=== PATIENT | female | born 1990 | race American Indian/Alaskan Native ===

== ENCOUNTER 2018-08-17 05:00 | Inpatient (IN) | payer BC ==
[2018-08-17 06:01] VITALS: BMI 32.3
[2018-08-17 06:26] LABS: BASO % 0.6 % (0.0-2.0); EOS % 0.8 % (0.0-4.0); HEMOGLOBIN 9.4 g/dL (11.0-16.0); LYMPH # 1.6 K/uL (1.0-4.3); LYMPH % 30.1 % (20.0-40.0); MEAN CELL VOLUME 86.1 fL (81.0-99.0); MEAN CORPUSCULAR HEMOGLOBIN 27.8 pg (27.0-31.0); MEAN CORPUSCULAR HGB CONC 32.3 g/dL (33.0-37.0); MEAN PLATELET VOLUME 11.5 fL (7.2-11.7); MONO # 0.6 K/uL (0.0-0.8); MONO % 11.4 % (0.0-10.0); NEUT # 3.1 K/uL (1.8-7.0); NEUT % 57.1 % (50.0-75.0); NRBC % 0.1 % (0.0-2.0); RBC 3.37 Mil/uL (3.80-5.20); RED CELL DISTRIBUTION WIDTH 15.3 % (11.5-14.5); WHITE BLOOD COUNT 5.4 K/uL (4.8-10.8)
[2018-08-17] MEDS ORDERED: cefOXitin IV 2 gm in Dextrose 2 GM/50 ML BAG IVPB ONE (06:39)
[2018-08-17] MEDS ORDERED: Lactated Ringer's 1,000 ML IV ONE (06:39)
[2018-08-17 06:43] LABS: ALBUMIN 3.4 g/dL (3.5-5.0); ALT/SGPT 23 U/L (9-52); AST/SGOT 19 U/L (14-36); BLOOD UREA NITROGEN 9 mg/dL (7-17); CALCIUM 9.3 mg/dl (8.6-10.4); GFR NON-AFRICAN AMERICAN > 60
[2018-08-17 06:44] LABS: SQUAMOUS EPITHIAL < 1 /hpf (0-5); URINE BILIRUBIN NEGATIVE (NEGATIVE); URINE BLOOD NEGATIVE (NEGATIVE); URINE CLARITY Clear (Clear); URINE COLOR Yellow (YELLOW); URINE GLUCOSE (UA) NORMAL (Normal); URINE LEUKOCYTE ESTERASE NEG Leu/uL (Negative); URINE PROTEIN NEGATIVE (NEGATIVE); URINE UROBILINOGEN NORMAL mg/dL (0.2-1.0)
--- NOTE | 2018-08-17 06:52 | OBHP ---
Datetime: 08/17/2018 06:45 IP Adm Impression: Term, intrauterine IP Admit Plan: Admit to unit; Initiate Section protocol Admit Comment, IP Provider: 27 yo female G2 with an IUP at 37.1 weeks Hx of previous C/S Admitted for repeat C/S, per Dr. Don PMx Neg PSHx Myomectomy and C/S NKDA Social Hx Denies x 3 FHT's reactive Admitted for repeat C/S Pelvic Type - PN: Adequate Extremities - PN: Normal Abdomen - PN: Normal Back - PN: Normal Breast - PN: Not Done Lungs - PN: Normal Heart - PN: Normal Thyroid - PN: Normal Neurologic - PN: Normal HEENT - PN: Normal General - PN: Normal Membranes, Provider: Intact Gestation - Est Wks by US: 37.1 EGA AdmitDate IP: 37.1 Vital Signs Provider: Reviewed IP Chief Complaint: Scheduled Section Dilatation, Provider: RAMYA Genitourinary Exam: Normal DTRs - PN: Normal
[2018-08-17] MEDS ORDERED: cefOXitin IV 2 gm in Saline 2 GM/50 ML BAG IVPB ONE (07:05)
[2018-08-17] MEDS ORDERED: Sodium Citrate/Citric Acid 15 ml Sol ONE (07:05)
[2018-08-17] MEDS ORDERED: Oxytocin 20 units in LR 2,000 ML IV ONE (07:07)
[2018-08-17] MEDS ORDERED: Oxytocin 10 Units/ml Inj ONE (07:09)
[2018-08-17] MEDS ORDERED: Sodium Citrate/Citric Acid 15 ml Sol PO ONE (07:20)
[2018-08-17] MEDS ORDERED: Morphine 1 mg/ml preservative-free Inj(Duramorph) ONE (07:26)
[2018-08-17] MEDS ORDERED: DiphenhydrAMINE 50 mg/ml Inj IVP PRN (09:01)
[2018-08-17] MEDS: Prenatal Multivit/Folic Acid/Iron Tab PO SCH (10:59)
[2018-08-17] MEDS: cefOXitin IV 2 gm in Dextrose 2 GM/50 ML BAG IVPB SCH ×2 (14:17→23:00)
--- NOTE | 2018-08-17 18:18 | HP ---
HISTORY OF PRESENT ILLNESS: The patient is a 27-year-old female with 2, para 1 with history of previous a section and a previous open myomectomy, who is coming in for a repeat section. The patient is 37 weeks by date. Due date is 09/06/2018. The patient's course has been essentially unremarkable. Medical history is unremarkable. SOCIAL HISTORY: She does not smoke or drink. ALLERGIES: NONE. CURRENT MEDICATIONS: one tablet daily. Currently, she is not taking any calcium or other medication. PAST SURGICAL HISTORY: Significant for an open myomectomy and a previous section because of the open myomectomy. MEDICAL HISTORY: Unremarkable. PHYSICAL EXAMINATION: VITAL SIGNS: Blood pressure is 110/70, pulse is 72, respiratory rate is 20, temperature is 98.8. HEAD, EAR, NOSE AND THROAT: Within normal. CHEST: Clear. CARDIAC: Reveals normal heart sounds without any murmurs. LUNGS: Clear. BREASTS: Report no masses. ABDOMEN: Symphysis to fundal height is 38 cm. Longitudinal lie. Vertex, heart tones are normal. PELVIC: She has a normal vulva. Bartholin, urethral, and [place]'s glands are within normal. Cervix is long, closed and posterior. Heart tracing is category 1. ADMITTING DIAGNOSES: Intrauterine at 37 weeks, previous myomectomy x1, previous section x1. Managed to perform a lower segment section. Prior to being scheduled for the surgical procedure, the patient underwent an informed consent, discussion and education session with me in the hospital lasting approximately 45 minutes, during which time I explained with understandable terms the following, the nature and extent of the disease process and the nature and extent of the contemplated operation. I also explained to her the risks and potential complications of the operative procedure to include but not limited to infection, hemorrhage, deep vein thrombosis, atelectasis, pneumonia, pulmonary embolism, damage to bladder, damage to ureter, renal insufficiency, renal failure, wound infection, wound dehiscence, incisional hernia, keloid formation, damage to large and small intestine, damage to inferior vena cava and the aorta requiring extensive repair, anesthesia complications, electrolyte imbalance, possibility of , fluid overload, cerebral edema, embolism and other complications that were discussed but are not listed above. Also discussed with the patient the anticipated benefits and results of the surgery including a conservative estimate of the successful outcome. I discussed with the patient what the operation would not accomplish. I informed the patient the possibility of unanticipated pathology requiring a more extensive procedure. All the questions were from the patient were encouraged, welcomed, and answered to her satisfaction. The patient was given the opportunity to store her own blood for use and autologous blood transfusion and she had declined. Ron Yusuf MD
[2018-08-18] MEDS: cefOXitin IV 2 gm in Dextrose 2 GM/50 ML BAG IVPB SCH (06:16)
[2018-08-18] MEDS: Enoxaparin 40 mg Syringe SC SCH (06:22)
[2018-08-18 08:07] LABS: HEMOGLOBIN 9.6 g/dL (11.0-16.0); MEAN CELL VOLUME 85.4 fL (81.0-99.0); MEAN CORPUSCULAR HEMOGLOBIN 27.8 pg (27.0-31.0); MEAN CORPUSCULAR HGB CONC 32.5 g/dL (33.0-37.0); MEAN PLATELET VOLUME 11.9 fL (7.2-11.7); RBC 3.46 Mil/uL (3.80-5.20); RED CELL DISTRIBUTION WIDTH 15.6 % (11.5-14.5); WHITE BLOOD COUNT 6.7 K/uL (4.8-10.8)
[2018-08-18] MEDS ORDERED: Bisacodyl 5mg EC Tab PO ONE (10:00)
[2018-08-18] MEDS: Prenatal Multivit/Folic Acid/Iron Tab PO SCH (10:14)
[2018-08-18] MEDS: Simethicone 80 mg Chewtab PO SCH ×4 (10:15→21:36)
[2018-08-18] MEDS: Oxycodone/Acetaminophen 5/325 mg Tab PO PRN (10:16)
--- NOTE | 2018-08-18 12:24 | OBPPN ---
Datetime: 08/18/2018 07:50 PP Pain Prov: Within normal limits PP Nausea Prov: Denies PP Flatus Prov: No PP BM Prov: No PP Breasts Prov: Normal PP Heart Prov: Normal PP Lungs Prov: Normal PP Abdomen/Uterus Prov: Normal PP Lochia Prov: Normal PP CVA Tenderness Prov: Normal PP Extremities Prov: Normal PP C/S Incision Prov: Normal PP Comments Phys Exam Prov: (+) bowel sounds, fundus firm and mobile. minimal kyle-incisional tender ness. incision clean/dry/intact. abdominal binder present. PP Impression Prov: Normal progression PP Plan Prov: Continue present management PP Progress Note Prov: Patient seen and examined. Patient denies n/v/flatus/BM. Plan: Patient to try diet today Catheter removed, will monitor for urine output Patient encouraged to ambulate Pain control IP PP Procedures: None Vital Signs Provider PP: Reviewed; Within Normal Limits
--- NOTE | 2018-08-18 13:19 | PN ---
DATE: 08/18/2018 SUBJECTIVE: The patient has no complaints. OBJECTIVE: VITAL SIGNS: Stable. She is afebrile. ABDOMEN: Soft. Incision is clean and intact. BREASTS: Reveal no engorgement. EXTREMITIES: Nontender with normal reflexes with no evidences of DVT. CHEST: Clear. CARDIAC: Reveals normal heart sounds without any murmurs. ASSESSMENT AND PLAN: The patient is status post section, stable. Plan is to ambulate the patient and advance diet as tolerated. Ron Yusuf MD
[2018-08-18] MEDS: Magnesium Hydroxide Susp 30 ml UD PO ONE ×2 (21:36→21:38)
[2018-08-19] MEDS: Oxycodone/Acetaminophen 5/325 mg Tab PO PRN ×3 (00:50→15:37)
[2018-08-19] MEDS: Enoxaparin 40 mg Syringe SC SCH (09:04)
[2018-08-19] MEDS: Simethicone 80 mg Chewtab PO SCH ×3 (09:04→22:09)
[2018-08-19] MEDS: Prenatal Multivit/Folic Acid/Iron Tab PO SCH (09:04)
[2018-08-19 16:10] VITALS: RESP 18
--- NOTE | 2018-08-20 01:49 | PN ---
DATE: 08/19/2018 SUBJECTIVE: The patient has no complaints. OBJECTIVE: VITAL SIGNS: Stable. ABDOMEN: Soft. Incision is clean and intact. EXTREMITIES: Nontender. Homans' sign is negative. No evidence of DVT. CHEST: Clear. CARDIAC: Exam reveals normal heart sounds without any murmurs. LUNGS: Clear. ASSESSMENT: The patient is status post section day 2. PLAN: To continue ambulating the patient, anticipate discharge tomorrow morning on Keflex 500 mg four times a day x7 and Tylenol No 3 two tablets every 4 hours p.r.n. for a total of 20 tablets. She will be followed up in the office in 1 week. Ron Yusuf MD
[2018-08-20] MEDS: Enoxaparin 40 mg Syringe SC SCH (07:43)
[2018-08-20 09:34] VITALS: BP 107/67; PULSE 87; TEMP 97.8; O2SAT 97
[2018-08-20] MEDS: Simethicone 80 mg Chewtab PO SCH (10:17)
[2018-08-20] MEDS ORDERED: Influenza Vaccine 60 MCG/0.5 ML SYR (3 yr & up) IM ONE (11:38)
--- NOTE | 2018-08-20 19:17 | PN ---
DATE: 08/20/2018 SUBJECTIVE: The patient has no complaints. She had a bowel movement. OBJECTIVE: VITAL SIGNS: Stable. She is afebrile. ABDOMEN: Soft. Incision is clean and intact. EXTREMITIES: Nontender. NEUROLOGIC: She is alert and oriented x3 with normal reflexes. ASSESSMENT: The patient is status post section day #3. PLAN: Plan is to discharge the patient on Keflex 500 mg 4 times a day x7 days and Tylenol No.3 two tablets every 4 hours p.r.n. for total of 40 tablets, to be followed up in the office in one week. Ron Yusuf MD
--- NOTE | 2018-08-21 02:55 | DS ---
The patient is a 27-year-old female who was admitted at 37 weeks 8 days, previous section x1, previous myomectomy x1, for repeat section. The patient underwent a lower segment section, delivered a live male infant, Apgars of 9 at one minute and 9 at five minutes, with normal tubes and ovaries. Postoperatively, the patient remained afebrile. She was discharged home on postoperative day number 3 on Keflex 500 mg four times a day x7 days and Tylenol No. 3 two tablets every 4 hourly p.r.n. for a total of 20 tablets, to be followed up in the office in one week. Ron Yusuf MD
--- NOTE | 2018-08-23 13:50 | OBDS ---
DELIVERY PERSONNEL Delivery Doctor: Gerson Yusuf MD Scrub Nurse: Eliane Mcnally Motor Coach Tour Operator: Jazzy Rivera RN Anesthesiologist: Dr. Keenan Resident: Priti Conte medical student MATERNAL INFORMATION Delivery Anesthesia: Spinal Medications in Delivery: flow seal Estimated Blood Loss (ml): 250 Placenta Cultured: Yes Maternal Complications: None LABOR SUMMARY [facility]: 09/06/2018 00:00 No. Babies in Womb: 1 Attempted: No LABOR INFORMATION Reason for Induction: Not Applicable Oxytocin: N/A Group B Beta Strep: Done, Result Unknown Antibiotics # of Doses: 1 Antibiotics Time of Last Dose: 717 Steroids Given: None Reason Steroids Not Administered: Not Applicable MEMBRANES Membranes Rupture Method: Artificial Rupture of Membranes: 08/17/2018 08:02 Length of Rupture (hrs): 0.02 Amniotic Fluid Color: Clear Amniotic Fluid Amount: Moderate Amniotic Fluid Odor: Normal STAGES OF LABOR Stage 3 hrs: 0 Stage 3 min: 1 CSECTION DELIVERY Primary Indication: Repeat Elective Secondary Indication: Other Other Secondary Indication: previous myomectomy CSection Urgency: Elective CSection Incidence: Repeat Labor: N/A CSection Incision: Lower Uterine Transverse BABY A INFORMATION Delivery Date/Time: 08/17/2018 08:03 Method of Delivery: Born in Route : No : N/A Forceps: N/A Vacuum Extraction: N/A Shoulder Dystocia : No SHOULDER DYSTOCIA BABY A Infant Delivery Date/Time: 08/17/2018 08:03 PRESENTATION/POSITION BABY A Presentation: Breech Cephalic Presentation: N/A Breech Presentation: Timi PLACENTA INFORMATION BABY A Placenta Delivery Time : 08/17/2018 08:04 Placenta Method of Delivery: Manual Removal Placenta Status: Delivered SCORES BABY A Heart Rate 1 min: >100 bpm Resp Effort 1 min: Good Cry Reflex Irritability 1 min: Cough or Sneeze or Pulls Away Muscle Tone 1 min: Active Motion Color 1 min: Body [place], Extremities Blue Resuscitation Effort 1 min: Tactile Stimulation SCORE 1 MIN: 9 Heart Rate 5 min: >100 bpm Resp Effort 5 min: Good [place] Reflex Irritability 5 min: Cough or Sneeze or Pulls Away Muscle Tone 5 min: Active Motion Color 5 min: Body [place], Extremities Blue Resuscitation Effort 5 min: N/A SCORE 5 MIN: 9 INFORMATION BABY A Gestational Age at Delivery: 37.1 Gestational Status: Term Outcome : Liveborn Condition : Stable Infant Sex: Male IDENTIFICATION/MEDS BABY A ID Band Number: [id number] ID Band Location: Left Leg; Left Arm Sensor Applied: Yes Sensor Number: [id number] Sensor Location : Cord Clamp Vitamin K Given : Aquamephyton 1 mg IM; Left Thigh Erythromycin Given: Given Both Eyes WEIGHT/LENGTH BABY A Infant Birthweight (gms): 3330 Infant Weight (lb): 7 Weight (oz): 5 Length Inches: 19.50 Infant Length cms: 49.5 CORD INFORMATION BABY A No. Cord Vessels: 3 Nuchal Cord : Around Neck x1, Loose Cord Blood Taken: Yes Infant Suction: Mouth; Nose ASSESSMENT BABY A Complications: None Physical Findings at Delivery: Within Normal Limits Respirations: Appears Normal Manager Database Administration/ALS Called : No Infant Care By: Stefanie Chavarria RN/Dr Nichols. Transferred To: Remains with Mother
== END 2018-08-20 13:00 | disposition home or self-care (01) | DRG 788 ==
LOC: C.EROB 05:00 → C.4D 06:02 → C.4M 10:57
PROVIDERS: ADMIT Obstetrics & Gynecology Reproductive Endocrinology; ATTEND Obstetrics & Gynecology Reproductive Endocrinology
PROC: 10D00Z1 Extraction of Products of Conception, Low, Open Approach (ICD-10-PCS; principal; 2018-08-17)
DX: O34.211 Maternal care for low transverse scar from previous cesarean delivery (principal); O69.81X0 Labor and delivery complicated by cord around neck, without compression, not applicable or unspecified; Z3A.37 37 weeks gestation of pregnancy; Z37.0 Single live birth

== ENCOUNTER 2018-12-23 00:57 | Emergency (ER) | payer BC ==
[2018-12-23 00:57] VITALS: BMI 32.3
[2018-12-23 01:03] VITALS: BP 114/77; PULSE 110; RESP 22; TEMP 99.4; O2SAT 100
--- NOTE | 2018-12-23 01:21 | C.PDOC ---
History Of Present Illness 28 year old female presents to the ER with runny nose, fever, and headache since yesterday. Patient has a coworker who has the flu. She has been taking ibuprofen and plain zyrtec with no relief. Denies nausea or vomiting. HPI: Influenza History Per: Patient Exam Limitations: no limitations Have you had recent travel within the past 21 days to any of the following countries: [place], [place], [place] or [place]?: No Onset/Duration Of Symptoms: Hrs Symptoms include: fever, headache, other (Rhinorrhea) Sick Contacts (Context): Individual(s) At Work Past Medical History Reviewed: Historical Data, Nursing Documentation, Vital Signs Vital Signs: Last Vital Signs Temp 99.4 F 12/23/18 01:02 Pulse 110 H 12/23/18 01:02 Resp 22 12/23/18 01:02 BP 114/77 12/23/18 01:02 Pulse Ox 100 12/23/18 01:02 - Medical History PMH: Denies: Depression, Diabetes, HTN - [facility] Procedures EXTRACTION OF POC, LOW CERVICAL, OPEN APPROACH (08/17/18) Family History: States: Unknown Family Hx - Social History Hx Tobacco Use: No Hx Alcohol Use: No Hx Substance Use: No - Immunization History Hx Tetanus Toxoid Vaccination: No Hx Influenza Vaccination: No Hx Pneumococcal Vaccination: No Review Of Systems Constitutional: Positive for: Fever. Negative for: Chills Eyes: Negative for: Pain, Redness ENT: Positive for: Nose Discharge. Negative for: Mouth Swelling Cardiovascular: Negative for: Chest Pain, Palpitations Respiratory: Negative for: Cough, Shortness of Breath Gastrointestinal: Negative for: Nausea, Vomiting, Diarrhea Genitourinary: Negative for: Dysuria, Hematuria Musculoskeletal: Negative for: Back Pain Skin: Negative for: Rash Neurological: Positive for: Headache. Negative for: Weakness, Numbness, Diz ziness Physical Exam - Physical Exam Appears: Non-toxic Skin: Normal Color, Warm, No Rash Head: Atraumatic, Normacephalic Eye(s): bilateral: Normal Inspection, PERRL, EOMI Ear(s): Bilateral: Normal Nose: Other (Enlarged turbinates, right greater than left) Oral Mucosa: Moist Neck: Normal ROM, No Midline Cervical Tenderness, No Paracervical Tenderness, Supple Chest: Symmetrical, No Tenderness Cardiovascular: Rhythm Regular Respiratory: Normal Breath Sounds, No Rales, No Rhonchi, No Wheezing Gastrointestinal/Abdominal: Soft, No Tenderness Extremity: Normal ROM (x4) Neurological/Psych: Oriented x3, Normal Speech, Normal Cranial Nerves (Grossly intact), Normal Motor, Normal Sensation, Other (no focal deficits) Gait: Steady Medical Decision Making Medical Decision Making: Patient likely with viral syndrome, will treat for flu like illness. - ECG O2 Sat by Pulse Oximetry: 100 Disposition Counseled Patient/Family Regarding: Diagnosis, Need For Followup, Rx Given - Disposition Referrals: [facility] [Outside] Disposition: HOME/ ROUTINE Disposition Time: : Condition: STABLE Prescriptions: Cetirizine HCl/Pseudoephedrine [Zyrtec-D Tablet] 1 each PO DAILY #14 tab.er.12h Oseltamivir Phosphate [Tamiflu] 75 mg PO BID 5 Days capsule Instructions: Flu, Adult (DC) Forms: Work Excuse - Clinical Impression Clinical Impression: Flu-like symptoms - PA / [employer]SE COUNSELOR / Resident Statement MD/DO has reviewed & agrees with the documentation as recorded. - Scribe Statement The provider has reviewed the documentation as recorded by the Scribgustavo Castro All medical record entries made by the Maliaibgustavo were at my direction and personally dictated by me. I have reviewed the chart and agree that the record accurately reflects my personal performance of the history, physical exam, medical decision making, and the department course for this patient. I have also personally directed, reviewed, and agree with the discharge instructions and disposition.
== END 2018-12-23 02:16 | disposition home or self-care (01) ==
LOC: C.ER 00:57
DX: J11.1 Influenza due to unidentified influenza virus with other respiratory manifestations (principal)